=== PATIENT | female | born 1940 | race Caucasian/White ===

== ENCOUNTER → 2016-10-07 | Day surgery (SDC) | payer MEDICARE, OTHER ==
[~2016-10-07] VITALS: Ht 160 cm; Wt 72.6 kg
[~2016-10-07] MED LIST: ACID CONTROL150 MG PO; ALTOPREV20 MG PO; CILOSTAZOL50 MG PO; LORTAB PO; MICARDIS80 MG PO; NEURONTIN 400400 MG PO; NORVASC 5 MG TAB5 MG PO; PROPAFENONE HC225 MG PO; PROVENTIL HFA 61 INH INH; RESTORIL30 MG PO; TENORMIN 50 MG50 MG PO; ZYRTEC10 MG PO
== END | disposition home or self-care (01) ==
LOC: OR 08:37
PROVIDERS: Internal Medicine Gastroenterology
PROC: 0DJ08ZZ Inspection of Upper Intestinal Tract, Via Natural or Artificial Opening Endoscopic (ICD-10-PCS; principal; 2016-10-07 14:30)
DX: K22.8 Other specified diseases of esophagus (principal); R13.10 Dysphagia, unspecified; K22.4 Dyskinesia of esophagus; I11.9 Hypertensive heart disease without heart failure; Z88.2 Allergy status to sulfonamides; Z79.899 Other long term (current) drug therapy; Z90.710 Acquired absence of both cervix and uterus
CPT/HCPCS: J2250; J3010; J7030

== ENCOUNTER 2021-05-31 11:55 | Emergency (ER) | payer MEDICARE, MEDICAID ==
[~2021-05-31 11:55] MED LIST changes: -ACID CONTROL150 MG PO; +AEROCHAMBER1 EA XX; +CEFUROXIME500 MG PO; +KEFLEX500 MG PO; +KLOR-CON 1010 MEQ PO; +LASIX20 MG PO; +METHADONE HCL5 MG PO; +NORCO 7.5-3251 EACH PO; +OMEPRAZOLE20 MG PO; -PROPAFENONE HC225 MG PO; +RYTHMOL SR225 MG PO; +VENTOLIN HFA 66.7 GM INH; +VIBRAMYCIN100 MG PO
[2021-05-31 12:58] LABS: HEMOGLOBIN 12.8 gm/dl (12.3-15.3); RED BLOOD COUNT 4.21 M/UL (4.00-5.10)
[2021-05-31] MEDS ORDERED: DELSYM30 MG/5 ML PO (16:22)
[2021-05-31] MEDS ORDERED: DOXYCYCLINE HY100 M2 PO (16:22)
[2021-05-31] MEDS ORDERED: MEDROL DOSEPAK 24 MG PO (16:22)
== END 2021-05-31 16:28 | disposition home or self-care (01) ==
LOC: ER1 11:55
PROVIDERS: Physician Assistant Medical
DX: R05.9 Cough, unspecified (principal); I11.9 Hypertensive heart disease without heart failure; Z20.822 Contact with and (suspected) exposure to COVID-19; Z88.2 Allergy status to sulfonamides
CPT/HCPCS: 71045; 80053; 85025; 99283; U0002

== ENCOUNTER → 2021-08-07 | Outpatient (CLI) | payer MEDICARE ==
[~2021-08-07] MED LIST changes: +DELSYM30 MG/5 ML PO; +DOXYCYCLINE HY100 M2 PO; +MEDROL DOSEPAK 24 MG PO
== END ==
LOC: RAD 10:53
DX: M16.12 Unilateral primary osteoarthritis, left hip (principal); M16.11 Unilateral primary osteoarthritis, right hip; M47.816 Spondylosis without myelopathy or radiculopathy, lumbar region
CPT/HCPCS: 73522

== ENCOUNTER → 2021-08-08 | Outpatient (CLI) | payer MEDICARE | LOC: KOH-I 08-02 10:30 | DX: J32.0 Chronic maxillary sinusitis (principal) | CPT/HCPCS: 70486 ==

== ENCOUNTER 2021-10-30 20:12 | Emergency (ER) | payer MEDICARE ==
[2021-10-30 20:28] LABS: HEMOGLOBIN 12.6 gm/dl (12.3-15.3); RED BLOOD COUNT 4.24 M/UL (4.00-5.10); WHITE BLOOD COUNT 10.6 K/UL (4.5-11.0)
[2021-10-30 20:55] LABS: BUN/CREATININE RATIO 15 (0-10)
== END 2021-10-31 08:19 | disposition other institution (70) ==
LOC: ER1 20:12
DX: K80.50 Calculus of bile duct without cholangitis or cholecystitis without obstruction (principal); R50.9 Fever, unspecified; I11.0 Hypertensive heart disease with heart failure; E78.5 Hyperlipidemia, unspecified; I50.32 Chronic diastolic (congestive) heart failure; I48.91 Unspecified atrial fibrillation; K21.9 Gastro-esophageal reflux disease without esophagitis; E89.0 Postprocedural hypothyroidism; Z96.651 Presence of right artificial knee joint
CPT/HCPCS: 0240U; 71045; 71250; 80053; 81001; 82550; 82553; 83605; 83690; 84484; 85025; 87040; 93005; 96365; 99285; J2185

== ENCOUNTER → 2021-11-19 | Outpatient (CLI) | payer MEDICARE, OTHER | LOC: LAB 11:09 | DX: Z20.822 Contact with and (suspected) exposure to COVID-19 (principal); H04.223 Epiphora due to insufficient drainage, bilateral | CPT/HCPCS: U0003 ==

== ENCOUNTER → 2021-12-06 | Outpatient (CLI) | payer MEDICARE, OTHER | LOC: LAB 10:36 | DX: Z20.822 Contact with and (suspected) exposure to COVID-19 (principal) | CPT/HCPCS: U0002 ==

== ENCOUNTER → 2022-01-03 | Outpatient (CLI) | payer MEDICARE, OTHER ==
[~2022-01-03] MED LIST changes: -ALTOPREV20 MG PO; +AMLODIPINE BESY10 MG PO; +ATENOLOL100 MG PO; +BENADRYL 50MG C50 MG PO; +DEXAMETHASONE6 MG PO; +ELIQUIS2.5 MG PO; +FUROSEMIDE20 MG PO; +HYDROCODON-ACE1 EAC2 PO; +LOVASTATIN20 MG PO; -NEURONTIN 400400 MG PO; +NEURONTIN800 MG PO; +ONDANSETRON HCL4 MG PO; +SOTALOL80 MG PO; +SYNTHROID125 MCG PO
== END ==
LOC: NM 07:31 → ECHO 10:15
DX: Z53.9 Procedure and treatment not carried out, unspecified reason (principal)
CPT/HCPCS: ECHO; 78452; 93017; 93306; A9502; J2785

== ENCOUNTER 2022-01-04 09:45 | Inpatient (IN) | payer MEDICARE, OTHER ==
[~2022-01-04] VITALS: Ht 160 cm; Wt 74.8 kg
[~2022-01-04 09:45] MED LIST changes: -AMLODIPINE BESY10 MG PO; -ATENOLOL100 MG PO; -BENADRYL 50MG C50 MG PO; -DEXAMETHASONE6 MG PO; -ELIQUIS2.5 MG PO; -FUROSEMIDE20 MG PO; -HYDROCODON-ACE1 EAC2 PO; -ONDANSETRON HCL4 MG PO; -SOTALOL80 MG PO; -SYNTHROID125 MCG PO
[2022-01-04 10:06] LABS: HEMOGLOBIN 11.9 gm/dl (12.3-15.3); RED BLOOD COUNT 4.09 M/UL (4.00-5.10); WHITE BLOOD COUNT 6.5 K/UL (4.5-11.0)
[2022-01-04 10:27] LABS: BUN/CREATININE RATIO 15 (0-10)
[2022-01-04] MEDS ORDERED: HYDROCODON-ACE1 EAC2 PO (11:35)
[2022-01-04] MEDS ORDERED: ATENOLOL100 MG PO (11:36)
[2022-01-04] MEDS ORDERED: AMLODIPINE BESY10 MG PO (11:36)
[2022-01-04] MEDS ORDERED: CILOSTAZOL50 MG PO (11:37)
[2022-01-04] MEDS ORDERED: FUROSEMIDE20 MG PO (11:38)
[2022-01-04] MEDS ORDERED: ONDANSETRON HCL4 MG PO (11:39)
[2022-01-04] MEDS ORDERED: SYNTHROID125 MCG PO (11:39)
[2022-01-04] MEDS ORDERED: SOTALOL80 MG PO (11:39)
[2022-01-04] MEDS ORDERED: BENADRYL 50MG C50 MG PO (11:49)
--- NOTE | 2022-01-04 17:46 | NUR ---
RN NOTIFIED DR. DOE OF PATIENT'S PAUSE AND AFIB. STATED SHE HAD BEEN IN CONTACT WITH DR. GUAJARDO AND THAT HE WOULD ADJUST PATIENT MEDICATION REGIMEN.
[2022-01-05 06:24] LABS: HEMOGLOBIN 12.5 gm/dl (12.3-15.3); RED BLOOD COUNT 4.23 M/UL (4.00-5.10); WHITE BLOOD COUNT 5.5 K/UL (4.5-11.0)
[2022-01-06 06:24] LABS: HEMOGLOBIN 13.8 gm/dl (12.3-15.3); RED BLOOD COUNT 4.62 M/UL (4.00-5.10)
[2022-01-06 06:39] LABS: WHITE BLOOD COUNT 8.3 K/UL (4.5-11.0)
[2022-01-07 04:33] LABS: HEMOGLOBIN 13.8 gm/dl (12.3-15.3); RED BLOOD COUNT 4.68 M/UL (4.00-5.10); WHITE BLOOD COUNT 8.6 K/UL (4.5-11.0)
[2022-01-07] MEDS ORDERED: DEXAMETHASONE6 MG PO (11:37)
[2022-01-07] MEDS ORDERED: ELIQUIS2.5 MG PO (11:41)
== END 2022-01-07 12:47 | disposition home or self-care (01) | DRG 177 ==
LOC: ER1 09:45 → M/S 11:21 → CDU 11:21 → M/S 14:05
PROVIDERS: Emergency Medicine; Internal Medicine; ADMIT Internal Medicine
PROC: 8E0ZXY6 Isolation (ICD-10-PCS; principal; 2022-01-04)
PROC: XW033E5 Introduction of Remdesivir Anti-infective into Peripheral Vein, Percutaneous Approach, New Technology Group 5 (ICD-10-PCS; 2022-01-04)
PROC: 3E0333Z Introduction of Anti-inflammatory into Peripheral Vein, Percutaneous Approach (ICD-10-PCS; 2022-01-04)
DX: U07.1 COVID-19 (principal); I50.33 Acute on chronic diastolic (congestive) heart failure; J96.01 Acute respiratory failure with hypoxia; J15.9 Unspecified bacterial pneumonia; J12.82 Pneumonia due to coronavirus disease 2019; I11.0 Hypertensive heart disease with heart failure; E78.5 Hyperlipidemia, unspecified; I36.1 Nonrheumatic tricuspid (valve) insufficiency; Z96.651 Presence of right artificial knee joint; K80.20 Calculus of gallbladder without cholecystitis without obstruction; E03.9 Hypothyroidism, unspecified; K21.9 Gastro-esophageal reflux disease without esophagitis; G62.9 Polyneuropathy, unspecified; I48.0 Paroxysmal atrial fibrillation; Z90.89 Acquired absence of other organs; Z98.890 Other specified postprocedural states; Z88.2 Allergy status to sulfonamides; Z80.3 Family history of malignant neoplasm of breast; Z79.899 Other long term (current) drug therapy; Z79.01 Long term (current) use of anticoagulants
CPT/HCPCS: 0240U; 36415; 36600; 71045; 80053; 82550; 82553; 82803; 82962; 83605; 83735; 83880; 84484; 85025; 85027; 86140; 87040; 93005; 94640; 94664; 94760; 96374; 99285; J0248; J0696; J1100; J7030